=== PATIENT | female | born 1940 | race Caucasian/White ===

== ENCOUNTER 2016-08-19 12:42 | Emergency (ER) | payer MEDICARE, OTHER ==
[2016-08-19 14:07] LABS: BASOPHIL 0.2 % (0-2); EOSINOPHIL 0.3 % (0-7); HCT 30.7 % (37.0-47.0); HGB 10.1 g/dl (12.5-16.0); LYMPHOCYTE 4.4 % (15-48); MCH 31.8 pg (25.0-31.0); MCHC 32.9 g/dL (32.0-36.0); MCV 96.5 fL (78.0-100.0); MONOCYTE 7.6 % (0-12); MPV 8.3 fL (6.0-9.5); NEUTROPHIL 87.5 % (41-80); PLT 541 K/uL (150-400); RBC 3.18 M/uL (4.20-5.40); RDW 13.4 % (11.5-14.0); WBC 11.2 K/uL (4.0-10.5)
[2016-08-19 14:30] LABS: ALBUMIN 2.5 g/dL (3.4-4.8); BILIRUBIN - TOTAL 0.5 mg/dL (0.1-1.0); CREATININE 1.9 mg/dL (0.5-1.0); POTASSIUM 4.6 mmol/L (3.5-5.1); TOTAL PROTEIN 5.5 g/dL (6.4-8.3)
== END 2016-08-19 21:16 | disposition other institution (70) ==
LOC: FER 12:42
PROVIDERS: Emergency Medicine
DX: K81.9 Cholecystitis, unspecified (principal); I10 Essential (primary) hypertension; E11.9 Type 2 diabetes mellitus without complications; D64.9 Anemia, unspecified; Z79.84 Long term (current) use of oral hypoglycemic drugs; Z79.82 Long term (current) use of aspirin; Z79.899 Other long term (current) drug therapy; Z87.19 Personal history of other diseases of the digestive system
CPT/HCPCS: 36415; 76705; 80053; 85025; J2270; J2405

== ENCOUNTER 2020-12-12 11:44 | Inpatient (IN) | payer MEDICARE, OTHER ==
[~2020-12-12] VITALS: Ht 165.1 cm; Wt 54.1 kg
[~2020-12-12 11:44] MED LIST: ANTIVERT25 MG PO; ASPIRIN CHEWABL81 MG PO; BALSALAZIDE DI750 MG PO; BUDESONIDE EC3 MG PO; GABAPENTIN300 MG PO; GLYBURIDE1.25 MG PO; HCTZ12.5 MG PO; LASIX20 MG PO; LIPITOR20 MG PO; MAG-OXIDE 400M400 MG PO; METRONIDAZOLE500 MG PO; NYSTATIN15 GM TOP; OXY-IR 5MG5 MG PO; PRILOSEC20 MG PO; SYNTHROID75 MCG PO; TOPROL XL 50 MG50 MG PO; TRADJENTA5 MG PO
[2020-12-12 13:16] LABS: BASOPHIL 0.4 % (0-2); EOSINOPHIL 0.1 % (0-7); HCT 34.9 % (37.0-47.0); MCH 33.2 pg (25.0-31.0); MCHC 31.5 g/dL (32.0-36.0); MCV 105.4 fL (78.0-100.0); MONOCYTE 4.1 % (0-12); MPV 10.5 fL (6.0-9.5); NEUTROPHIL 89.3 % (41-80); NRBC 0; PLT 417 K/uL (150-400); RBC 3.31 M/uL (4.20-5.40); RDW 13.6 % (11.5-14.0); WBC 16.2 K/uL (4.0-10.5)
[2020-12-12 13:38] LABS: ALBUMIN 2.1 g/dL (3.4-5.0); BILIRUBIN - TOTAL 0.6 mg/dL (0.2-1.0); BUN/CREAT RATIO (CALC) 17.7 RATIO; CREATININE 1.47 mg/dL (0.51-0.95); GLOBULIN (CALCULATION) 3.1 g/dL; TOTAL PROTEIN 5.2 g/dL (6.4-8.2)
[2020-12-12 13:43] LABS: LACTIC ACID 1.6 mmol/L (0.4-1.9)
[2020-12-12 16:21] LABS: BILIRUBIN 1+ mg/dL (NEGATIVE); BLOOD TRACE-INTACT Ery/uL (NEGATIVE); CLARITY CLEAR (CLEAR); COLOR YELLOW (YELLOW); GLUCOSE (U) NORMAL (NORMAL); LEUKOCYTES 2+ Leu/uL (NEGATIVE); NITRITE NEGATIVE (NEGATIVE); PROTEIN 2+ mg/dL (NEGATIVE); UROBILINOGEN 0.2 mg/dL (0.2-1.0)
[2020-12-12 16:37] LABS: BACTERIA 1+; URINARY WBC TNTC
[2020-12-12 21:38] LABS: CPK 452 U/L (26-192); LDH 199 U/L (81-234)
[2020-12-12] MEDS ORDERED: ASPIRIN EC81 MG PO ×2 (23:43→23:49)
[2020-12-12] MEDS ORDERED: HYZAAR 50-12.51 EACH PO (23:44)
[2020-12-12] MEDS ORDERED: DAILY VALUE1 EACH PO (23:46)
[2020-12-12] MEDS ORDERED: ZOCOR20 MG PO (23:46)
[2020-12-12] MEDS ORDERED: ALDACTONE25 MG PO (23:47)
[2020-12-12] MEDS ORDERED: VERAPAMIL ER240 M1 PO (23:48)
[2020-12-12] MEDS ORDERED: LIPITOR20 MG PO (23:49)
[2020-12-12] MEDS ORDERED: BALSALAZIDE DI750 MG PO (23:51)
[2020-12-12] MEDS ORDERED: BUDESONIDE EC3 MG PO (23:52)
[2020-12-12] MEDS ORDERED: LASIX20 MG PO (23:52)
[2020-12-12] MEDS ORDERED: NEURONTIN300 MG PO (23:52)
[2020-12-12] MEDS ORDERED: GLYBURIDE1.25 MG PO (23:54)
[2020-12-12] MEDS ORDERED: HCTZ12.5 MG PO (23:56)
[2020-12-12] MEDS ORDERED: SYNTHROID75 MCG PO (23:56)
[2020-12-12] MEDS ORDERED: TRADJENTA5 MG PO (23:57)
[2020-12-12] MEDS ORDERED: PRILOSEC20 MG PO (23:58)
[2020-12-12] MEDS ORDERED: TOPROL XL50 MG PO (23:58)
[2020-12-13] MEDS ORDERED: TRESIBA FL100 UNIT/1 IJ
[2020-12-13] MEDS ORDERED: PROBIOTIC1 EAC3 PO (00:01)
--- NOTE | 2020-12-15 13:42 | NUR ---
12/15/20 [facility] has accepted patient. Please call [facility] at [phone] at discharge.
[2020-12-15 17:06] LABS: CREATININE 1.47 mg/dL (0.51-0.95)
[2020-12-15 17:07] LABS: ALBUMIN 1.7 g/dL (3.4-5.0); BILIRUBIN - TOTAL 0.4 mg/dL (0.2-1.0); GLOBULIN (CALCULATION) 2.4 g/dL; TOTAL PROTEIN 4.1 g/dL (6.4-8.2)
[2020-12-15 17:08] LABS: MAGNESIUM 1.4 mg/dL (1.8-2.4); PHOSPHORUS 3.5 mg/dL (2.6-4.7)
[2020-12-15 18:37] LABS: BASOPHIL 0 % (0-2); EOSINOPHIL 0 % (0-7); HCT 35.6 % (37.0-47.0); HGB 10.7 g/dl (12.5-16.0); LYMPHOCYTE 3.6 % (15-48); MCH 32.7 pg (25.0-31.0); MCHC 30.1 g/dL (32.0-36.0); MCV 108.9 fL (78.0-100.0); MONOCYTE 3.8 % (0-12); MPV 10.9 fL (6.0-9.5); NEUTROPHIL 92.1 % (41-80); NRBC 0.2; PLT 346 K/uL (150-400); RBC 3.27 M/uL (4.20-5.40); RDW 13.5 % (11.5-14.0)
[2020-12-15 20:00] LABS: FOLIC ACID (SERUM) 58.1 ng/mL (8.6-58.9)
[2020-12-17 09:56] LABS: BUN 24 mg/dL (7-18); CHLORIDE 117 mmol/L (98-107); CO2 (BICARBONATE) 16 mmol/L (21-32); CREATININE 1.41 mg/dL (0.51-0.95); GLUCOSE 112 mg/dL (74-106)
[2020-12-17] MEDS ORDERED: PREDNISONE 10MG10 MG PO (15:55)
[2020-12-17] MEDS ORDERED: BUDESONIDE EC3 MG PO (15:55)
[2020-12-17] MEDS ORDERED: TOPROL XL 50 MG50 MG PO (15:55)
[2020-12-17] MEDS ORDERED: NORVASC5 MG PO (15:55)
== END 2020-12-17 16:40 | disposition home health service (06) | DRG 871 ==
LOC: FER 11:44 → FMS 16:45
PROVIDERS: Emergency Medicine; Nurse Practitioner; ADMIT Internal Medicine
PROC: 8E0ZXY6 Isolation (ICD-10-PCS; principal; 2020-12-12)
PROC: XW033E5 Introduction of Remdesivir Anti-infective into Peripheral Vein, Percutaneous Approach, New Technology Group 5 (ICD-10-PCS; 2020-12-12)
DX: A41.9 Sepsis, unspecified organism (principal); G93.41 Metabolic encephalopathy; U07.1 COVID-19; J96.01 Acute respiratory failure with hypoxia; N30.00 Acute cystitis without hematuria; K50.90 Crohn's disease, unspecified, without complications; A04.9 Bacterial intestinal infection, unspecified; E87.0 Hyperosmolality and hypernatremia; N17.9 Acute kidney failure, unspecified; E72.11 Homocystinuria; R65.20 Severe sepsis without septic shock; N18.30 Chronic kidney disease, stage 3 unspecified; E11.22 Type 2 diabetes mellitus with diabetic chronic kidney disease; I12.9 Hypertensive chronic kidney disease with stage 1 through stage 4 chronic kidney disease, or unspecified chronic kidney disease; E83.42 Hypomagnesemia; B96.20 Unspecified Escherichia coli [E. coli] as the cause of diseases classified elsewhere; E86.0 Dehydration; L53.9 Erythematous condition, unspecified; F41.9 Anxiety disorder, unspecified; E11.51 Type 2 diabetes mellitus with diabetic peripheral angiopathy without gangrene; E03.9 Hypothyroidism, unspecified; E78.5 Hyperlipidemia, unspecified; K21.9 Gastro-esophageal reflux disease without esophagitis; M81.0 Age-related osteoporosis without current pathological fracture; E53.8 Deficiency of other specified B group vitamins; Z90.49 Acquired absence of other specified parts of digestive tract; Z90.710 Acquired absence of both cervix and uterus; Z98.49 Cataract extraction status, unspecified eye; Z89.512 Acquired absence of left leg below knee; Z88.8 Allergy status to other drugs, medicaments and biological substances; Z91.041 Radiographic dye allergy status; Z88.1 Allergy status to other antibiotic agents; Z79.4 Long term (current) use of insulin; Z79.899 Other long term (current) drug therapy; Z91.018 Allergy to other foods; W19.XXXA Unspecified fall, initial encounter
CPT/HCPCS: 36415; 36600; 70450; 71045; 73564; 80048; 80053; 81001; 82150; 82550; 82607; 82728; 82746; 82803; 82962; 83605; 83615; 83735; 84100; 84145; 84484; 85025; 87040; 87045; 87046; 87070; 87076; 87077; 87088; 87186; 87205; 93005; 94010; 94760; 97161; 97166; 97530; 97530-GP; 97535; C9399; J0360; J1100; J1170; J2405; J2543; J7030; J7050; U0002